=== PATIENT | female | born 1975 | race Caucasian/White ===

== ENCOUNTER → 2016-06-26 | Outpatient (CLI) | payer BC ==
[~2016-06-26] MED LIST: BCPILLS PO; FLNIN NAE
--- NOTE | 2016-06-26 16:44 | MAMMOGRAPHY REPORT ---
BILATERAL FIRST EVER DIGITAL SCREENING MAMMOGRAM TOMOSYNTHESIS WITH CAD: 06/26/2016 CLINICAL HISTORY: Routine screening. Baseline exam. TECHNIQUE: Breast tomosynthesis in addition to standard 2D mammography was performed. Current study was also evaluated with a Computer Aided Detection (CAD) system. COMPARISON: No prior exams were available for comparison. BREAST COMPOSITION: The tissue of both breasts is heterogeneously dense, which may obscure small ma sses. FINDINGS: There is a lobulated 11 mm mass in the upper outer posterior (approximate 11:00 posterior ) right breast best seen on the MLO and XCCL views for which additional characterization with ultras ound and possible additional mammographic views are recommended. An oval circumscribed 6 mm mass wi th lucent notch is seen in the 1:00 middle to posterior left breast. Although this could represent a benign intramammary lymph node, additional characterization with ultrasound and possible additiona l mammographic views are recommended. No cluster of suspicious microcalcifications or areas of architectural distortion are seen bilateral ly. IMPRESSION: ACR BI-RADS CATEGORY 0: INCOMPLETE EVALUATION: NEED ADDITIONAL IMAGING EVALUATION The mass identified in each upper outer quadrant is indeterminate, warranting additional characteriz ation with ultrasound and possible additional mammographic views. The patient will be called to schedule an appointment. Approximately 10% of breast cancers are not detected with mammography. A negative mammographic repor t should not delay biopsy if a clinically suggestive mass is present. Estella Pimentel M.D. ay/:06/26/2016 16:21:47 Asbestos Cement Sheet Supervisor: Cynthia MYLES)(Luigi), [facility] letter sent: Addl Imaging 0 BI-RADS Code: ACR BI-RADS Category 0: Incomplete Evaluation: Need Additional Imaging Evaluation
== END | disposition home or self-care (01) ==
LOC: C.MAMM 10:48
PROVIDERS: ATTEND Nurse Practitioner Family
DX: Z12.31 Encounter for screening mammogram for malignant neoplasm of breast (principal); N63 Unspecified lump in breast

== ENCOUNTER → 2016-07-11 | Outpatient (CLI) | payer BC ==
--- NOTE | 2016-07-11 13:02 | MAMMOGRAPHY REPORT ---
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 COMPARISON: Screening mammogram dated 06/26/2016. FINDINGS: Real-time high-resolution sonographic evaluation was performed in the upper outer quadrant of the left breast and upper outer quadrant of the right breast to assess for the recently describe d mammographic masses. In the left 1:00 axis, 7 cm from the nipple, there is an oval parallel circu mscribed mixed echogenicity anechoic and isoechoic mass that measures 4.7 x 2.0 x 5.8 mm. No centra l blood flow is documented to confirm a lymph node. This could represent a comp located cyst or may ign-appearing solid mass such as a fibroadenoma. In the right 10:30 breast, 67 cm from the nipple, there is a lobulated hypoechoic solid mass measuring 10.3 x 4.1 x 8.6 mm. This most likely represen ts a fibroadenoma but given some of the borders are not completely circumscribed, definitive charact erization with ultrasound guided core biopsy is recommended. IMPRESSION: ACR BI-RADS CATEGORY 4B: INTERMEDIATE SUSPICION FOR MALIGNANCY - FOLLOW-UP RECOMMENDED 1. Ultrasound guided core biopsy is recommended for a solid 10.3 mm mass in the 10:30 posterior rig ht breast, which most likely represents a fibroadenoma. 2. Pending benign pathology results from the right breast biopsy, a short interval follow-up target ed left breast ultrasound in the 1:00 axis is recommended to ensure stability of an oval parallel ci rcumscribed benign appearing solid versus cystic mass. These results and recommendations were discussed with the patient at the time of the exam. She tent atively scheduled the biopsy and follow-up appointment prior to leaving our department. Estella Pimentel M.D. ay/:07/11/2016 11:46:40 Duck Bill Operator: Dr. Estella Pimentel, [facility] letter sent: Abnormal 4/5 BI-RADS Code: ACR BI-RADS Category 4B: Intermediate Suspicion For Malignancy
== END | disposition home or self-care (01) ==
LOC: C.MAMM 09:52
PROVIDERS: ATTEND Nurse Practitioner Family
DX: N63 Unspecified lump in breast (principal)

== ENCOUNTER → 2016-07-12 | Outpatient (CLI) | payer BC ==
--- NOTE | 2016-07-12 11:34 | Discharge Instructions ---
Discharge Instructions Procedure Procedure Date: Jul 12, 2016. Reason for visit: Right Mass. Discharge Discharge Date: Jul 12, 2016. Discharge Diagnosis: status post breast biopsy Instructions Activity Recommendations: Additional Limitations (see below) Return to School/Work: no limitations Recommended Home Diet: No Limitations Provider Instructions: ACTIVITY RECOMMENDATIONS: * No lifting, pushing, pulling or exercising the affected side for three days. RETURN TO SCHOOL/WORK: * You may return to work/school after the procedure, but do not perform any strenuous activities for 24 to 48 hours. MEDICATIONS: * Tylenol (two 325 mg) every four to six hours if needed for mild pain (if not allergic to Tylenol). DIET: * Resume previous diet. SPECIAL CARE INSTRUCTIONS: * Keep biopsy site dry for 24 hours. May shower after 24 hours, but do not soak (bathe) incision. * May remove Tegaderm (plastic patch) tomorrow AFTER showering. * Leave the steri-strips on for one week. Allow the steri-strips to fall off by themselves. If not off after one week, you may remove them. You may place a Bandaid crosswise over the strips, if desired. * Apply ice 10 minutes on and 10 minutes off as needed. * Wear a bra at bedtime to sleep more comfortably for 2-3 days. * Your referring physician should have the results after approximately 5 to 7 business days. * Call for unusual bleeding, fever, drainage, etc or if you have any questions call during normal business hours or after hours call Dr Reagan, . FOLLOW UP VISIT: Follow-up with Referring Physician as scheduled. Allergies Coded Allergies: [place] Blue FCF (Verified Allergy, SHORTNESS OF BREATH, 12/19/12) Ethinyl Estradiol (Verified Allergy, SHORTNESS OF BREATH, 12/19/12) Levonorgestrel (Verified Allergy, SHORTNESS OF BREATH, 12/19/12) Krista Jin Recommendations: Call your doctor if: * Temperature above 101 degrees * Pain not relieved by pain medicine ordered * There is increased drainage or redness from any incision * You have any unanswered questions or concerns. Your Doctors Instructions noted above were prepared by provider Jessica Reagan. Patient Signature Section: Patient Instructions Signature Page Sherrie Beard Patient (or Guardian) Signature/Date: I have read and understand the instructions given to me by my caregivers. Caregiver/RN/Doctor Signature/Date: The above-named patient and/or guardian has received patient instructions on this date. + Original Patient Signature Page (only) stays with chart. Please make copy for patient.
--- NOTE | 2016-07-12 13:33 | MAMMOGRAPHY REPORT ---
ULTRASOUND GUIDED BIOPSY RIGHT BREAST: 07/12/2016 CLINICAL HISTORY: Right 10:30 breast mass. PATIENT CONSENT: The procedure, risks and benefits were discussed with the patient and informed writ ten consent was obtained. A timeout was performed immediately prior to the procedure. PROCEDURE DESCRIPTION: With ultrasound guidance, aseptic technique, and lidocaine as the local anest hetic (1% lidocaine to anesthetize the skin and 1% lidocaine with epinephrine to anesthetize the zayda per tissues), the mass of concern in the right 10:30 breast was sampled 4 times with a 14-gauge Achi oriana biopsy needle. Immediately thereafter, with ultrasound guidance, aseptic technique, and lidocai ne as the local anesthetic, a metallic localizer clip was placed into the mass. Direct pressure was applied to the site immediately post procedure and hemostasis was achieved. Postprocedure unilater al mammograms were performed to confirm placement of the clip in the expected location of the breast mass. The patient tolerated the procedure without complication. She was given wound care instruct ions. The specimens were sent to pathology for analysis. COMPARISON: Comparison is made to exams dated: 07/11/2016 ultrasound and 06/26/2016 mammogram - . IMPRESSION: ULTRASOUND GUIDED BIOPSY Ultrasound-guided core needle biopsy of the right 10:30 breast mass, with clip placement. The patie nt will receive pathology results from her referring provider. Pending benign pathology results, re commend follow-up ultrasound of the left breast in 6 months to reevaluate the left 1:00 breast mass. Jessica Reagan M.D. ah/:07/12/2016 11:36:16 Lathe Turner: Carly MYLES)(Luigi),
--- NOTE | 2016-07-12 13:36 | MAMMOGRAPHY REPORT ---
UNILATERAL RIGHT DIGITAL DIAGNOSTIC MAMMOGRAM: 07/12/2016 CLINICAL HISTORY: Status post ultrasound-guided biopsy of the right 10:30 breast mass. TECHNIQUE: Postprocedural right CC and ML views were obtained. COMPARISON: Comparison is made to exams dated: 07/12/2016 ultrasound biopsy, 07/11/2016 ultrasound, a nd 06/26/2016 mammogram - [facility]. BREAST COMPOSITION: The tissue of the right breast is heterogeneously dense, which may obscure smal l masses. FINDINGS: A new biopsy marker clip is seen at the site of the biopsied mass in the right upper oute r quadrant. No significant postbiopsy hematoma is seen. IMPRESSION: POST PROCEDURE IMAGING FOR MARKER PLACEMENT New biopsy marker clip status post ultrasound-guided biopsy of the right 10:30 breast mass. Patholo gy results are pending. Approximately 10% of breast cancers are not detected with mammography. A negative mammographic repor t should not delay biopsy if a clinically suggestive mass is present. Jessica Reagan M.D. ah/:07/12/2016 11:39:22 Apprentice Architect: Carly BLANCO(Cachorro)(M), [facility] BI-RADS Code: Post Procedure Imaging For Marker Placement
== END | disposition home or self-care (01) ==
LOC: C.MAMM 10:47
PROVIDERS: ATTEND Nurse Practitioner Family
DX: D24.1 Benign neoplasm of right breast (principal)

== ENCOUNTER → 2017-01-01 | Outpatient (CLI) | payer BC ==
--- NOTE | 2017-01-01 14:33 | MAMMOGRAPHY REPORT ---
UNILATERAL LEFT DIGITAL DIAGNOSTIC MAMMOGRAM TOMOSYNTHESIS WITH CAD AND TARGETED LEFT ULTRASOUND: 12/19 CLINICAL HISTORY: 41 year-old woman presents for follow-up of a benign-appearing circumscribed oval m ass in the upper outer quadrant of the left breast thought to correlate with a complicated cyst or ly mph node on ultrasound in the 1:00 axis. She has a history of prior benign right breast biopsy in th e 10:30 axis, pathology results yielded a fibroadenoma. TECHNIQUE: Left breast tomosynthesis in addition to standard 2D mammography was performed. Current st udy was also evaluated with a Computer Aided Detection (CAD) system. COMPARISON: Comparison is made to exams dated: 07/12/2016 mammogram, 07/12/2016 ultrasound biopsy, 06/22 ultrasound, and 06/26/2016 mammogram - [facility]. BREAST COMPOSITION: The tissue of the left breast is heterogeneously dense, which may obscure small masses. FINDINGS: There is an oval circumscribed 6.3 x 3.0 x 6.0 mm mass in the upper outer posterior left br east, that is unchanged in size and appearance comparing to the prior mammograms dated 06/26/2016. N o new suspicious mass, architectural distortion or cluster of microcalcifications is seen throughout the left breast. Targeted ultrasound was performed at 1:00 left breast to reevaluate the benign-appearing oval paralle l circumscribed anechoic and isoechoic mass. In the 1:00 axis, 7 cm from the nipple, there is an ova l parallel circumscribed mixed anechoic and isoechoic mass measuring 4.6 x 1.8 x 5.4 mm. This has no t significantly changed in size or appearance since the prior ultrasound and most likely represents a complicated cyst, less likely an intramammary lymph node. Another six-month follow-up targeted ultr asound is recommended to ensure longer stability. IMPRESSION: ACR-BI-RADS CATEGORY 3: PROBABLY BENIGN, TARGETED ULTRASOUND ACR-BI-RADS CATEGORY 3: PRO BABLY BENIGN Stable mammographic appearance of the left breast. Stable benign-appearing circumscribed oval parall el anechoic and isoechoic subcentimeter mass in the 1:00 left breast on ultrasound. Another six-marely h follow-up left diagnostic mammogram and repeat targeted ultrasound is recommended to ensure longer stability. Annual right mammography will also be due at that time. These results and recommendations were discussed with the patient at the time of the exam. She tenta tively scheduled a follow-up appointment prior to leaving our department. Approximately 10% of breast cancers are not detected with mammography. A negative mammographic report should not delay biopsy if a clinically suggestive mass is present. Estella Pimentel M.D. ay/:01/01/2017 10:32:49 Exercise Science Instructor: Ekta BLANCO(Cachorro)(Luigi), [facility] letter sent: Follow Up Recommended 3 BI-RADS Code: ACR-BI-RADS Category 3: Probably Benign Ultrasound BI-RADS: ACR-BI-RADS Category 3: Pr obably Benign
== END | disposition home or self-care (01) ==
LOC: C.MAMM 10:03
PROVIDERS: ATTEND Nurse Practitioner Family
DX: Z09 Encounter for follow-up examination after completed treatment for conditions other than malignant neoplasm (principal); N63 Unspecified lump in breast

== ENCOUNTER → 2017-07-05 | Outpatient (CLI) | payer OTHER ==
--- NOTE | 2017-07-05 15:10 | MAMMOGRAPHY REPORT ---
BILATERAL DIGITAL DIAGNOSTIC MAMMOGRAM TOMOSYNTHESIS WITH CAD AND TARGETED BILATERAL ULTRASOUND: 07/05 CLINICAL HISTORY: Six-month follow-up of left breast mass. History of prior benign right breast biop sy which yielded a fibroadenoma. TECHNIQUE: Breast tomosynthesis in addition to standard 2D mammography was performed. Current study was also evaluated with a Computer Aided Detection (CAD) system. Bilateral CC and MLO 2-D and tomosy nthesis images were obtained. COMPARISON: Comparison is made to exams dated: 01/01/2017 ultrasound, 01/01/2017 mammogram, 07/12/2016 mammogram, 07/12/2016 ultrasound biopsy, 07/11/2016 ultrasound, and 06/26/2016 mammogram - [facility]. BREAST COMPOSITION: The tissue of both breasts is heterogeneously dense, which may obscure small mas ses. FINDINGS: Again noted is an oval circumscribed benign-appearing 6 mm mass within the left upper oute r quadrant, best seen on the tomosynthesis images. On the cc tomosynthesis images, there is a low de nsity central portion suggestive of a fatty hilum within an intramammary lymph node. The mass is sta ble dating back to the Jun 2016 exam. There is a partially visualized 7 mm asymmetry within the righ t inferior breast on the MLO view, thought to project laterally based on the tomosynthesis localizer bar, for which ultrasound was performed. The remainder of both breasts are stable compared to prior exams, without suspicious masses, calcifications, or areas of architectural distortion noted. Circum scribed mass with an associated biopsy marker clip in the right upper outer quadrant is stable. Targeted ultrasound was performed of the left 1:00 breast at the site of the previously seen breast m ass. In the left breast at 1:00, 7 cm from the nipple, again noted is an oval circumscribed mixed an echoic and isoechoic mass which measures 5 x 2 x 5 mm, and is stable dating back to at least the 2016 exam. On today's exam central internal vascularity is seen, suggestive of an intramammary lymph node. This corresponds with the stable mammographic mass and is benign and likely represents a n intramammary lymph node, less likely a complicated cyst. Targeted ultrasound was performed of the right lower outer quadrant in the region of the mammographic asymmetry. In the right 8:00 breast perireolar region, there is an oval anechoic circumscribed mass which measures 4 x 4 mm, consistent with a benign simple cyst. A morphologically normal intramammar y lymph node is also seen within the right 8:00 breast far laterally which measures 8 x 4 mm. One of these 2 masses is felt to correspond with the mammographic asymmetry. No suspicious masses or other suspicious mammographic abnormalities are evident. IMPRESSION: ACR BI-RADS CATEGORY 2: BENIGN, TARGETED ULTRASOUND ACR BI-RADS CATEGORY 2: BENIGN The circumscribed benign-appearing 6 mm mass within the left 1:00 breast is stable dating back to the June 2016 exam, and is benign and likely represents an intramammary lymph node. There is no marija mographic or targeted sonographic evidence of malignancy. A 1 year screening mammogram is recommended . The patient has been verbally notified of the results. Approximately 10% of breast cancers are not detected with mammography. A negative mammographic report should not delay biopsy if a clinically suggestive mass is present. Jessica Reagan M.D. ah/:07/05/2017 11:01:28 Dry Color Mixer: Bessie BLANCO(Cachorro)(Luigi), [facility] letter sent: Normal 1/2 BI-RADS Code: ACR BI-RADS Category 2: Benign Ultrasound BI-RADS: ACR BI-RADS Category 2: Benign
== END | disposition home or self-care (01) ==
LOC: C.MAMM 10:22
PROVIDERS: ATTEND Nurse Practitioner Family
DX: N63.21 Unspecified lump in the left breast, upper outer quadrant (principal)

== ENCOUNTER → 2017-08-15 | Outpatient (CLI) | payer OTHER ==
--- NOTE | 2017-08-15 08:26 | DIAGNOSTIC IMAGING REPORT ---
LEFT AXILLARY ULTRASOUND CLINICAL HISTORY: Left axillary mass COMPARISON STUDY: No previous studies for comparison. FINDINGS: The patient was unable to palpate the reported left axillary mass. Ultrasonographic evaluation of the axilla revealed no pathologic masses, and no pathologically enlarged lymph nodes. IMPRESSION: Unremarkable left axillary ultrasound. Clinical follow-up is recommended. Electronically signed by: Dev Barnes M.D. 08/15/2017 8:25 AM Dictated Date/Time: 08/15/2017 8:22 AM
== END | disposition home or self-care (01) ==
LOC: C.ULTR 07:36
PROVIDERS: ATTEND Nurse Practitioner Family
DX: R59.0 Localized enlarged lymph nodes (principal)